=== PATIENT | female | born 1930 | race Caucasian/White ===

== ENCOUNTER 2016-12-11 12:06 | Emergency (ER) | payer OTHER ==
[2016-12-11 12:23] VITALS: TEMP 36.8; Ht 152.4 cm
[2016-12-11] MEDS ORDERED: SODIUM CHLORIDE 0.9% 500ML 500 ML IV STA (12:45)
[2016-12-11] MEDS ORDERED: ONDANSETRON INJ 2 MG/ML 2 ML VIAL IV STA (12:45)
--- NOTE | 2016-12-11 12:49 | EMERGENCY ROOM VISIT NOTE ---
History Report prepared by Griselda: Margoth Brar Under the Supervision of: Dr. Jamil Duncan M.D. First contact with patient: 12:39 Chief Complaint: HIP PAIN Stated Complaint: SEVERE PAIN HIP/KNEE-UNRELATED TO FALL History of Present Illness The patient is a 86 year old female who presents to the Emergency Room with complaints of worsening severe right hip pain starting last night. The patient denies any falls. She was started on prednisone but ran out of her prescription yesterday. The patient was taking Tylenol with codeine which she last took this morning but denies any relief. She denies any abdominal pain. The patient is not on any blood thinners. Source of History: patient Onset: last night Position: other (hip) Symptom Intensity: severe Timing: worsening Associated Symptoms: No abdominal pain Review of Systems See HPI for pertinent positives & negatives. A total of 10 systems reviewed and were otherwise negative. Past Medical & Surgical Medical Problems: (1) No Known Active Medical Problems Family History No pertinent family history stated. Social History Smoking Status: Current Every Day Smoker Marital Status: Current/Historical Medications Scheduled Clonazepam (Klonopin), 1 MG PO BID Diclofenac Sodium (Topical) (Voltaren 1% Top Gel), 1 APPLN TOP QID Fluoxetine (Prozac), 20 MG PO DAILY Gabapentin (Neurontin), 300 MG PO QID Ketorolac Tromethamine (Toradol), 1 TAB PO TID Levothyroxine Sodium (Levothyroxine Sodium), 112 MCG PO DAILY Lidocaine (Lidoderm Patch 5%), 1 PATCH TD DAILY Metronidazole (Topical) (Metrocream), 1 APPLN TOP BID Scheduled PRN Meclizine Hcl (Meclizine Hcl), 25 MG PO BID PRN for Nausea Allergies Coded Allergies: Iodinated Diagnostic Agents (Unverified Allergy, Intermediate, HIVES, ) Latex1 -Allergic Contact Dermititis (Unverified Allergy, Intermediate, ., 12/11/16) Meperidine (Verified Allergy, Unknown, 12/11/16) Uncoded Allergies: ANESTHESIA (Allergy, Unknown, ., 12/11/16) Physical Exam Vital Signs Date Time Temp Pulse Resp B/P (MAP) Pulse Ox O2 Delivery O2 Flow Rate FiO2 12/11/16 14:35 68 20 142/66 92 Room Air 12/11/16 14:13 82 20 155/76 99 Nasal Cannula 2.0 12/11/16 13:20 64 12/11/16 13:14 72 20 150/69 94 12/11/16 12:23 36.8 78 20 179/83 97 Room Air Physical Exam GENERAL: Patient is a uncomfortable-appearing female HEAD: Normocephalic atraumatic EYES: Ocular movements intact pupils equal and react to light OROPHARYNX mucous membranes are moist no exudates present no erythema or edema present NECK: Supple no nuchal rigidity CHEST: Good equal expansion LUNGS: Clear and equal to auscultation CARDIAC: Normal S1 and S2 ABDOMEN: Soft nontender no guarding BACK: No CVA tenderness EXTREMITIES: Good ROM of right hip however extremely painful. NEURO: Patient is following commands and answering questions appropriately. Alert and oriented x3 Cranial Nerves 2-12 grossly intact Medical Decision & Procedures ER Provider Diagnostic Interpretation: Radiology results as stated below per my review and radiologist interpretation: CHEST ONE VIEW PORTABLE FINDINGS: The bones soft tissues and hemidiaphragms are normal. The cardiomediastinal silhouette is normal. The lungs are clear. The pulmonary vasculature is normal. IMPRESSION: Negative chest. The above report was generated using voice recognition software. It may contain grammatical, syntax or spelling errors. Electronically signed by: Kenna Harris FEMUR 2 VIEWS ROUTINE, PELVIS 1 OR 2 VIEW ROUTINE FINDINGS: PELVIS: Mild degenerative changes of the bilateral femoral acetabular joints with chondrocalcinosis. Advanced degenerative changes are seen involving the lower lumbar spine. No acute fracture or dislocation. Pelvic ring is intact. Negative for opaque foreign body. 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 Chondrocalcinosis. Moderate joint effusion. No acute fracture or dislocation identified. Background osteopenia. IMPRESSION: 1. Osteopenia without acute fracture or dislocation. 2. Degenerative changes about the pelvis, imaged lower lumbar spine and right knee as above. 3. Moderate knee joint effusion. The above report was generated using voice recognition software. It may contain grammatical, syntax or spelling errors. Electronically signed by: Kenna Santacruz FEMUR 2 VIEWS ROUTINE, PELVIS 1 OR 2 VIEW ROUTINE FINDINGS: PELVIS: Mild degenerative changes of the bilateral femoral acetabular joints with chondrocalcinosis. Advanced degenerative changes are seen involving the lower lumbar spine. No acute fracture or dislocation. Pelvic ring is intact. Negative for opaque foreign body. 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 Chondrocalcinosis. Moderate joint effusion. No acute fracture or dislocation identified. Background osteopenia. IMPRESSION: 1. Osteopenia without acute fracture or dislocation. 2. Degenerative changes about the pelvis, imaged lower lumbar spine and right knee as above. 3. Moderate knee joint effusion. The above report was generated using voice recognition software. It may contain grammatical, syntax or spelling errors. Electronically signed by: Anton Colin M.D. Laboratory Results 12/11/16 13:05 Red Blood Count 4.43, Mean Corpuscular Volume 99.8, Mean Corpuscular Hemoglobin 33.4, Mean Corpuscular Hemoglobin Concent 33.5, Mean Platelet Volume 9.3, Neutrophils (%) (Auto) 77.0, Lymphocytes (%) (Auto) 11.2, Monocytes (%) (Auto) 10.4, Eosinophils (%) (Auto) 0.1, Basophils (%) (Auto) 0.3, Neutrophils # (Auto ) 6.69, Lymphocytes # (Auto) 0.97, Monocytes # (Auto) 0.90, Eosinophils # (Auto ) 0.01, Basophils # (Auto) 0.03 12/11/16 13:05 Test 12/11/16 13:05 White Blood Count 8.69 K/uL (4.8-10.8) Red Blood Count 4.43 M/uL (4.2-5.4) Hemoglobin 14.8 g/dL (12.0-16.0) Hematocrit 44.2 % (37-47) Mean Corpuscular Volume 99.8 fL (80-100) Mean Corpuscular Hemoglobin 33.4 pg (25-34) Mean Corpuscular Hemoglobin Concent 33.5 g/dl (32-36) Platelet Count 280 K/uL (130-400) Mean Platelet Volume 9.3 fL (7.4-10.4) Neutrophils (%) (Auto) 77.0 % Lymphocytes (%) (Auto) 11.2 % Monocytes (%) (Auto) 10.4 % Eosinophils (%) (Auto) 0.1 % Basophils (%) (Auto) 0.3 % Neutrophils # (Auto) 6.69 K/uL (1.4-6.5) Lymphocytes # (Auto) 0.97 K/uL (1.2-3.4) Monocytes # (Auto) 0.90 K/uL (0.11-0.59) Eosinophils # (Auto) 0.01 K/uL (0-0.5) Basophils # (Auto) 0.03 K/uL (0-0.2) RDW Standard Deviation 52.3 fL (36.4-46.3) RDW Coefficient of Variation 14.4 % (11.5-14.5) Immature Granulocyte % (Auto) 1.0 % Immature Granulocyte # (Auto) 0.09 K/uL (0.00-0.02) Prothrombin Time 9.9 SECONDS (9.0-12.0) Prothromb Time International Ratio 0.9 (0.9-1.1) Activated Partial Thromboplast Time 25.3 SECONDS (21.0-31.0) Partial Thromboplastin Ratio 1.0 Anion Gap 8.0 mmol/L (3-11) Estimated GFR () 63.2 Estimated GFR (Non- 54.5 BUN/Creatinine Ratio 14.1 (10-20) Calcium Level 10.1 mg/dl (8.5-10.1) Labs reviewed by ED physician. Medications Administered Medications (Trade) Dose Ordered Sig/Tj Route Start Time Stop Time Status Last Admin Dose Admin Hydromorphone HCl (Dilaudid Inj) 0.5 mg Q20M PRN IV 12/11/16 12:45 12/25/16 12:44 12/11/16 14:10 0.5 MG Ondansetron HCl (Zofran Inj) 4 mg NOW STAT IV 12/11/16 12:45 12/11/16 12:47 DC 12/11/16 13:11 4 MG Sodium Chloride 500 ml @ 999 mls/hr Q31M STAT IV 12/11/16 12:45 12/11/16 13:15 DC 12/11/16 13:11 999 MLS/HR Ketorolac Tromethamine (Toradol Tab) 10 mg NOW STAT PO 12/11/16 14:14 12/11/16 14:15 DC 12/11/16 14:35 10 MG Lidocaine (Lidoderm Patch 5%) 1 patch NOW STAT TD 12/11/16 14:36 12/11/16 14:37 DC 12/11/16 15:08 1 PATCH ECG Indication: other (hip pain) Rate (beats per minute): 64 Rhythm: normal sinus Findings: no acute ischemic change, no ectopy ED Course 1241: Past medical records reviewed. The patient was evaluated in room A12B. A complete history and physical examination was performed. 1245: Sodium Chloride 500 ml @ 999 mls/hr, Zofran Inj 4 mg IV, Dilaudid Inj 0.5 mg IV. 1409: I reevaluated the patient and recommended she go a rehab facility, she is refusing. She is feeling better and just wants Toradol despite my recommendation. 1412: Toradol Inj 30 mg IV. 1414: Toradol Tab 10 mg PO 1532: Upon reexamination the patient is resting. I discussed results and treatment plan with the patient. She verbalizes agreement and understanding. The patient is ready for discharge. Medical Decision Differential diagnosis: Etiologies such as fracture, dislocation, neurovascular compromise, compartment syndrome, soft tissue injury, as well as others were entertained. This is an 86-year-old female who presents to the emergency department complaining of right hip pain. The patient recently finished a course of prednisone. The patient is in a severe amount of pain. For this reason IV was established, patient given Dilaudid. Repeat examination revealed improvement the patient's symptoms. Patient was sent for x-rays of the hip as well as the chest. These were found to be normal. I strongly recommended to the patient as well as her daughter that the patient be admitted to a rehabilitation facility however they are both refusing. Based on this I strongly recommended to the patient that she use a walker. The patient's daughters also requesting that the patient be placed on Toradol. I strongly cautioned against this however they wished to try it. I will also place a Lidoderm patch and have the patient continue Tylenol with Codeine. Repeat examination revealed improvement the patient's symptoms. I strongly recommended to the patient that she follow- up with orthopedics and to return if she has continuing pain. Medication Reconcilliation Current Medication List: was personally reviewed by me Blood Pressure Screening Patient's blood pressure: Elevated blood pressure Blood pressure disposition: Elevated BP felt to be situational Impression Primary Impression: Hip pain, right Scribe Attestation The scribe's documentation has been prepared under my direction and personally reviewed by me in its entirety. I confirm that the note above accurately reflects all work, treatment, procedures, and medical decision making performed by me. Departure Information Dispostion Home / Self-Care Prescriptions Lidocaine (Lidoderm Patch 5%) 1 Ea Tdsy 1 PATCH TD DAILY, #30 PATCH Prov: Jamil Duncan MD 12/11/16 Ketorolac Tromethamine (TORADOL) 10 Mg Tab 1 TAB PO TID for 5 Days, #15 TAB Prov: Jamil Duncan MD 12/11/16 Referrals No Doctor, Assigned (PCP) Forms HOME CARE DOCUMENTATION FORM, IMPORTANT VISIT INFORMATION, WORK / SCHOOL INSTRUCTIONS Patient Instructions ED Sprain Hip, Hip Precautions, Hip Safety Master Daily Tasks, My [facility] Additional Instructions Need follow up with Dr Cabrera's office You were found to have an elevated blood pressure today (>120 sytolic or >90 diastolic). Per medicare guidelines, you need to follow up with this blood pressure screening with your Primary Care Physician (PCP). For a new PCP call [phone]. You received narcotic or benzodiazepene medication while in the emergency room today. This is an addictive medication that may cause drowziness as well as constipation. Do not drive, operate heavy machinery, or drink alcohol under the influence of this medication. Take Toradol as directed Take Tylenol 3 for breakthrough pain You have been examined and treated today on an emergency basis only. This is not a substitute for, or an effort to provide, complete comprehensive medical care. It is impossible to recognize and treat all injuries or illnesses in a single emergency department visit. It is therefore important that you follow up closely with your PCP. Call as soon as possible for an appointment. Thank you for your time and consideration. I look forward to speaking with you again soon. Please don't hesitate to call us if you have any questions.
[2016-12-11] MEDS: HYDROmorphone INJ 0.5 MG/0.5 ML SYR IV PRN ×2 (13:12→14:10)
[2016-12-11 13:16] LABS: BASO % 0.3 %; BASO ABS # 0.03 K/uL (0-0.2); COMPLETE YES; EOS % 0.1 %; HEMATOCRIT 44.2 % (37-47); LYMPH % 11.2 %; LYMPH ABS # 0.97 K/uL (1.2-3.4); MEAN CELL VOLUME 99.8 fL (80-100); MEAN CORPUSCULAR HEMOGLOBIN 33.4 pg (25-34); MEAN CORPUSCULAR HGB CONC 33.5 g/dl (32-36); MEAN PLATELET VOLUME 9.3 fL (7.4-10.4); MONO % 10.4 %; PLATELET COUNT 280 K/uL (130-400); RED BLOOD COUNT 4.43 M/uL (4.2-5.4); WHITE BLOOD COUNT 8.69 K/uL (4.8-10.8)
[2016-12-11 13:24] LABS: INR 0.9 (0.9-1.1); PROTHROMBIN TIME (PATIENT) 9.9 SECONDS (9.0-12.0)
[2016-12-11 13:34] LABS: BLOOD UREA NITROGEN 13 mg/dl (7-18); BUN/CREATININE RATIO 14.1 (10-20); CALCIUM 10.1 mg/dl (8.5-10.1); CARBON DIOXIDE 29 mmol/L (21-32); CHLORIDE 101 mmol/L (98-107); CREATININE 0.94 mg/dl (0.60-1.20); GLUCOSE 97 mg/dl (70-99); POTASSIUM 3.9 mmol/L (3.5-5.1); SODIUM 138 mmol/L (136-145)
[2016-12-11] MEDS ORDERED: METR0.754 TOP (13:38)
[2016-12-11] MEDS ORDERED: DICL1GEL12 TOP (13:38)
[2016-12-11] MEDS ORDERED: GABA-113 PO (13:38)
[2016-12-11] MEDS ORDERED: MECL1TAB42 PO (13:38)
[2016-12-11] MEDS ORDERED: LEVO112T4 PO (13:38)
[2016-12-11] MEDS ORDERED: FLUO20CA35 PO (13:38)
[2016-12-11] MEDS ORDERED: CLON1TAB3 PO (13:38)
--- NOTE | 2016-12-11 13:56 | DIAGNOSTIC IMAGING REPORT ---
CHEST ONE VIEW PORTABLE CLINICAL HISTORY: Pt c/o Severe rt hip pain pain COMPARISON STUDY: No previous studies for comparison. FINDINGS: The bones soft tissues and hemidiaphragms are normal. The cardiomediastinal silhouette is normal. The lungs are clear. The pulmonary vasculature is normal. IMPRESSION: Negative chest. The above report was generated using voice recognition software. It may contain grammatical, syntax or spelling errors. Electronically signed by: Jacky Gutierrez M.D. 12/11/2016 1:55 PM Dictated Date/Time: 12/11/2016 1:54 PM
--- NOTE | 2016-12-11 13:59 | DIAGNOSTIC IMAGING REPORT ---
R FEMUR 2 VIEWS ROUTINE, PELVIS 1 OR 2 VIEW ROUTINE HISTORY: 86 years-old Female Pt c/o RT hip pain acute pelvic and right hip pain without reported injury COMPARISON: None available TECHNIQUE: Single AP view the pelvis with frontal and lateral views of the right femur FINDINGS: PELVIS: Mild degenerative changes of the bilateral femoral acetabular joints with chondrocalcinosis. Advanced degenerative changes are seen involving the lower lumbar spine. No acute fracture or dislocation. Pelvic ring is intact. Negative for opaque foreign body. 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 Chondrocalcinosis. Moderate joint effusion. No acute fracture or dislocation identified. Background osteopenia. IMPRESSION: 1. Osteopenia without acute fracture or dislocation. 2. Degenerative changes about the pelvis, imaged lower lumbar spine and right knee as above. 3. Moderate knee joint effusion. The above report was generated using voice recognition software. It may contain grammatical, syntax or spelling errors. Electronically signed by: Anton Colin M.D. 12/11/2016 1:58 PM Dictated Date/Time: 12/11/2016 1:55 PM
[2016-12-11] MEDS ORDERED: KETOROLAC TROMETHAMINE 30 MG/ML VIAL IV STA (14:12)
[2016-12-11] MEDS ORDERED: KETOROLAC TROMETHAMINE 10 MG TAB PO STA (14:14)
[2016-12-11] MEDS ORDERED: KETO10TA PO (14:15)
[2016-12-11 14:35] VITALS: BP 142/66; PULSE 68; O2SAT 92
[2016-12-11] MEDS ORDERED: LIDODERM (LIDOCAINE) PATCH 5% TD STA (14:36)
[2016-12-11] MEDS ORDERED: NF656 TD (14:37)
== END 2016-12-11 15:15 | disposition home or self-care (01) ==
LOC: C.EDB 12:10 → C.EDA 15:15
DX: M25.551 Pain in right hip (principal); F17.200 Nicotine dependence, unspecified, uncomplicated; Z79.899 Other long term (current) drug therapy; Z88.8 Allergy status to other drugs, medicaments and biological substances; Z91.040 Latex allergy status; Z91.041 Radiographic dye allergy status